=== PATIENT | female | born 1990 ===

== ENCOUNTER 2016-08-04 10:41 | Inpatient (IN) | payer MEDICAID, SELFPAY ==
[2016-08-04] MEDS ORDERED: Ampicillin 2 GM in Sodium Chloride 0.9% 100 ML IVPB ONE (11:54)
[2016-08-04] MEDS ORDERED: AMPicillin 1 GM in Sodium Chloride 0.9% 100 ML IVPB SCH (12:00)
[2016-08-04] MEDS ORDERED: Lactated Ringer's 1,000 ML IV SCH (12:00)
[2016-08-04 12:37] LABS: BASO # 0.1 K/uL (0.0-0.2); BASO % 0.5 % (0.0-2.0); EOS # 0.1 K/uL (0.0-0.7); EOS % 0.6 % (0.0-4.0); HEMATOCRIT 37.7 % (34.0-47.0); LYMPH # 1.6 K/uL (1.0-4.3); LYMPH % 14.2 % (20.0-40.0); MEAN CELL VOLUME 90.4 fl (81.0-99.0); MEAN CORPUSCULAR HEMOGLOBIN 29.8 pg (27.0-31.0); MEAN PLATELET VOLUME 10.2 fl (7.2-11.7); MONO # 0.6 K/uL (0.0-0.8); MONO % 5.5 % (0.0-10.0); NEUT % 79.2 % (50.0-75.0); NRBC % 0.1 % (0.0-0.0); WHITE BLOOD COUNT 11.4 K/uL (4.8-10.8)
[2016-08-04] MEDS ORDERED: Lidocaine 1% Inj (20ml) ONE (12:45)
[2016-08-04 12:48] VITALS: BP 127/61; PULSE 85; RESP 19; TEMP 97.8; O2SAT 100
[2016-08-04] MEDS ORDERED: Benzocaine/Menthol SPRAY TOP PRN (13:54)
[2016-08-04] MEDS ORDERED: Oxycodone/Acetaminophen 5/325 mg Tab PO PRN ×2 (13:54)
--- NOTE | 2016-08-04 23:10 | OBADHP ---
Datetime: 08/04/2016 12:01 Pelvic Type - PN: Adequate Abdomen - PN: Normal Lungs - PN: Normal Heart - PN: Normal Neurologic - PN: Normal HEENT - PN: Normal General - PN: Normal FHR - Baseline A Provider: 145 Contraction Comments Provider: 3 min Vital Signs Provider: Reviewed; Within Normal Limits IP Chief Complaint: Uterine contractions NICHD Variability Prov Fetus A: Moderate 6-25bpm NICHD Accel Fetus A IP Provider: [id number] FHR Category Provider Fetus A: Category I NICHD Decel Fetus A IP Provider: None Dilatation, Provider: 8 Station, Provider: -1 Genitourinary Exam: Normal EGA AdmitDate IP: 35.4 IP Adm Impression: , intrauterine IP Admit Plan: Initiate labor protocol Datetime: 08/04/2016 11:59 Admit Comment, IP Provider: 25 YO F @ 35.4 presents to the [facility] with CTX and abdominal pain. Sh e states the CTX started around 4 am and were occuring every 10 min. Ctx have grown stronger and sergei ser together. - Denies VB, LOF POBHX: 2 PMH: None PSH: none Allergies: None F/H: None HIV: Neg 3 hour GTT: neg Rubella: immune HbsAg: neg Med: vitamins GBS: unknown Social Hx: denies alcohol or drug use. Blood group: O 25 YO F @ 35.4 presents to the [facility] with CTX and abdominal pain. - Initiate C section protocol - Ampicillin 2 gm, followed by 1gm Q4 Nirkim Slade PGY-1 [facility] ADDENDUM
--- NOTE | 2016-08-04 23:13 | OBHP ---
Datetime: 08/04/2016 11:59 Admit Comment, IP Provider: 25 YO F @ 35.4 presents to the [facility] with CTX and abdominal pain. Sh e states the CTX started around 4 am and were occuring every 10 min. Ctx have grown stronger and sergei ser together. - Denies VB, LOF POBHX: 2 PMH: None PSH: none Allergies: None F/H: None HIV: Neg 3 hour GTT: neg Rubella: immune HbsAg: neg Med: vitamins GBS: unknown Social Hx: denies alcohol or drug use. Blood group: O 25 YO F @ 35.4 presents to the [facility] with CTX and abdominal pain. - Initiate C section protocol - Ampicillin 2 gm, followed by 1gm Q4 Janes Slade PGY-1 [facility] ADDENDUM pt seen _ examined by me. I: PTL UNKNOWN GBS STATUS
[2016-08-05 08:01] LABS: MEAN CORPUSCULAR HEMOGLOBIN 29.8 pg (27.0-31.0); MEAN CORPUSCULAR HGB CONC 33.1 g/dL (33.0-37.0); RED CELL DISTRIBUTION WIDTH 13.1 % (11.5-14.5); WHITE BLOOD COUNT 13.2 K/uL (4.8-10.8)
[2016-08-05] MEDS ORDERED: Prenatal Multivit/Folic Acid/Iron Tab PO SCH (09:00)
--- NOTE | 2016-08-05 16:04 | OBPPN ---
Datetime: 08/05/2016 07:06 PP Pain Prov: Within normal limits PP Nausea Prov: Denies PP Flatus Prov: No PP BM Prov: No PP Breasts Prov: Normal PP Heart Prov: Normal PP Lungs Prov: Normal PP Abdomen/Uterus Prov: Normal PP Lochia Prov: Normal PP Vulva/Perineum Prov: Normal PP CVA Tenderness Prov: Normal PP Extremities Prov: Normal PP C/S Incision Prov: Not Applicable PP Progress Prov: Normal PP Comments Phys Exam Prov: uterus: firm level umbilicus PP Progress Note Prov: 25 y/o seen and examined at bedside sitting baby. Patie nt had uneventful overnight. Patient reports mild pelvic pain controlled w/ pain meds. OOB/Ambulati ng w/o dizziness. Breast/bottle feeding w/o difficulty. Tolerating PO diet well. Lochia is less th an menses in volume. Voiding freely w/ no blood noted. Denies flatus and bowel movement yest. + B S . Denies fevers, chills, n/v/d, CP/SOB, lightheadedness and calf pain. Assessment: 25 y/o s/p on 08/04/2016 @ 13:36 am tolerating pain w/ medication, tolera ting oral intake, adequate urine output, doing well on PPD1. Plan: Ibuprofen 600 mg 1 tab Q6h PO prn for mild pain. -Percocet 5/325 mg 1-2 tabs PO Q6h prn for mod/severe pain. Encourage breast feeding and ambulation. Beni Whelan PGY-1 OB Hospitalist on-call....Pt seen and examined by me on rounds this morning. Agree with PGY1 note . ERIKA Vital Signs Provider PP: Reviewed; Within Normal Limits
--- NOTE | 2016-08-06 11:24 | OBPPN ---
Datetime: 08/06/2016 05:49 PP Pain Prov: Within normal limits PP Nausea Prov: Denies PP Flatus Prov: Yes PP BM Prov: No PP Breasts Prov: Normal PP Heart Prov: Normal PP Lungs Prov: Normal PP Abdomen/Uterus Prov: Normal PP Lochia Prov: Normal PP Vulva/Perineum Prov: Normal PP CVA Tenderness Prov: Normal PP Extremities Prov: Normal PP C/S Incision Prov: Not Applicable PP Progress Prov: Normal PP Comments Phys Exam Prov: Uterus: firm below umbilicus PP Impression Prov: Normal progression PP Plan Prov: Continue present management; Discharge PP Progress Note Prov: 25 y/o seen and examined at bedside. Patient had uneventful overnight . Patient reports mild pelvic pain controlled w/ pain meds. OOB/Ambulating w/o dizziness. Breast/b ottle feeding w/o difficulty. Tolerating PO diet well. Lochia is less than menses in volume. Voidi ng freely w/ no blood noted. Reports flatus and no bowel movement yest . Denies fevers, chills, n/ v/d, CP/SOB, lightheadedness and calf pain. Assessment: 25 y/o s/p on 08/04/2016 @ 13:36 am tolerating pain w/ medication, tolera ting oral intake, adequate urine output, doing well on PPD2. Plan: Ibuprofen 600 mg 1 tab Q6h PO prn for mild pain. Encourage breast feeding and ambulation. -Discharge Home today The patient was seen with the resident I agree with the notes patient cleared for discharge Beni Whelan PGY-1 Vital Signs Provider PP: Within Normal Limits
--- NOTE | 2016-08-06 11:28 | OBDCSUM ---
Datetime: 08/06/2016 05:50 Discharged to, Provider: Home Follow up at, Provider: [facility] Disch Instr Activity: Normal activity; May Shower Disch Instr Diet: Regular Discharge Instructions, Provider: Routine instructions given Discharge Diagnosis, Provider: Delivery Discharge Time: 08/06/2016 05:50 Follow up in weeks, Provider: 6 weeks Disch Activity Restrictions: No exercising; No lifting; No sexual activity; Nothing in vagina - Inte rcourse, tampons, douche Discharge Comment, Provider: 25 y/o s/p C @ 35.4 weeks GA Delivered baby male on 08/04/16 @ 13:36 ,weight 3205 g , : 9-9 Patient doing well, stable for discharge. Prescription given for pain -Encourage -Tylenol 600 mg PO 1 tab PO Q6h for pain PRN -Discharge today Ambulate w/ caution, nothing in vagina, no heavy lifting, avoid stairs, if excessive bleeding or f ever without relief from Tylenol go to ED - Advised for F/U [facility] with Dr Leroy Araujo clinic in 6 week and 2-3 days for with peditricia n. Patient has appointment with Dr Araujo 09/10 Beni Whelan PGY1 Patient was seen with the resident I agree with the notes the patient is cleared for discharge
== END 2016-08-06 13:20 | disposition home or self-care (01) | DRG 775 ==
LOC: H.EROB2 10:41 → H.L&D 11:52 → H.OB/GYN 15:20
PROVIDERS: ADMIT Obstetrics & Gynecology; ATTEND Obstetrics & Gynecology
PROC: 0UQGXZZ Repair Vagina, External Approach (ICD-10-PCS; principal; 2016-08-04)
PROC: 10E0XZZ Delivery of Products of Conception, External Approach (ICD-10-PCS; 2016-08-04)
PROC: 4A1HXCZ Monitoring of Products of Conception, Cardiac Rate, External Approach (ICD-10-PCS; 2016-08-04)
DX: O70.0 First degree perineal laceration during delivery (principal); O69.81X0 Labor and delivery complicated by cord around neck, without compression, not applicable or unspecified; Z37.0 Single live birth; Z3A.35 35 weeks gestation of pregnancy

== ENCOUNTER 2016-10-13 20:26 | Emergency (ER) | payer SELFPAY ==
[2016-10-13 21:05] VITALS: BP 125/73; PULSE 73; RESP 16; TEMP 98.3; O2SAT 98
--- NOTE | 2016-10-13 22:41 | ED PDOC ---
HPI: General Adult Time Seen by Provider: 10/13/16 22:28 Chief Complaint (Nursing): ENT Problem History Per: Patient Additional Complaint(s): Pt. states for the past 2 days she's had atraumatic L earache. Reports pain is unrelieved with Advil. Denies hearing changes, fever, trauma, ear discharge. Past Medical History Reviewed: Historical Data, Nursing Documentation, Vital Signs Vital Signs: Last Vital Signs Temp 98.3 F 10/13/16 21:03 Pulse 73 10/13/16 21:03 Resp 16 10/13/16 21:03 BP 125/73 10/13/16 21:03 Pulse Ox 98 10/13/16 21:03 - Surgical History Surgical History: - Family History Family History: States: No Known Family Hx - Immunization History Hx Tetanus Toxoid Vaccination: No Hx Influenza Vaccination: No - Home Medications Home Medications: Ambulatory Orders Medication Instructions Recorded Multivit/Folic Acid/I 1 tab PO DAILY 08/04/16 [] Ibuprofen [Motrin Tab] 600 mg PO Q6 PRN #30 tab 08/06/16 Amoxicillin [Amoxil 500 mg Cap] 500 mg PO Q8 #30 cap 10/13/16 - Allergies Allergies/Adverse Reactions: Allergies Allergy/AdvReac Type Severity Reaction Status Date / Time No Known Allergies Allergy Verified 01/21/16 22:00 Review of Systems ROS Statement: Except As Marked, All Systems Reviewed And Found Negative ENT: Positive for: Ear Pain Physical Exam - Physical Exam Appears: Positive for: Well, Non-toxic, No Acute Distress Head Exam: Positive for: ATRAUMATIC, NORMAL INSPECTION, NORMOCEPHALIC Skin: Positive for: Normal Color, Warm. Negative for: Rash Eye Exam: Positive for: EOMI, Normal appearance, PERRL ENT: Positive for: TM Is/Are (L TM is erythematous and bulging). Negative for: Pharyngeal Erythema, Tonsillar Exudate, Tonsillar Swelling - ECG O2 Sat by Pulse Oximetry: 98 Disposition - Clinical Impression Clinical Impression: Otitis media - Patient ED Disposition Is Patient to be Admitted: No - Disposition Referrals: [facility] [Outside] Disposition: Routine/Home Disposition Time: 22:41 Condition: STABLE Prescriptions: Amoxicillin [Amoxil 500 mg Cap] 500 mg PO Q8 #30 cap Instructions: Otitis Media (ED)
== END 2016-10-13 23:25 | disposition home or self-care (01) ==
LOC: H.ER 20:26
DX: H66.90 Otitis media, unspecified, unspecified ear (principal)